=== PATIENT | male | born 1995 ===

== ENCOUNTER → 2017-07-16 | Outpatient (CLI) | payer OTHER ==
[2017-07-16 11:21] LABS: Basophils # (auto) 0 uL; Basophils % (auto) 0.7 % (0.0-2.0); Eosinophils # (auto) 0.1 uL; Eosinophils % (auto) 1.1 % (0.0-7.0); Hematocrit 50.1 % (41.0-53.0); Hemoglobin 17.1 g/dL (13.5-17.5); Lymphocytes % (auto) 18.8 % (10.0-50.0); Mean Corpuscular Hemoglobin 28.9 pg (28.0-32.0); Mean Corpuscular Hgb Conc. 34.1 g/dL (32.0-36.0); Mean Corpuscular Volume 84.7 fL (80.0-100.0); Monocytes # (auto) 0.5 uL; Neutrophils # (auto) 3.8 uL; Neutrophils % (auto) 70.4 % (37.0-80.0); Platelet Count (auto) 226 10^3/uL (140-450); Red Blood Cells 5.92 10^6/uL (4.5-5.90); Red Cell Distribution Width 13.1 % (11.8-14.3); White Blood Cell 5.4 10^3/uL (4.4-10.8)
[2017-07-16 11:31] LABS: Urine Bacteria NONE SEEN /hpf (None Seen); Urine Blood Negative /uL (Negative); Urine Specific Gravity 1.021 (1.001-1.035); Urine WBC <1 /hpf (0 - 3)
[2017-07-16 12:33] LABS: Folate (Folic Acid) 16.48 ng/mL (5.38-24)
[2017-07-16 12:59] LABS: Albumin 4.3 g/dL (3.4-5.0); BUN/Creatinine Ratio 11.7; Bilirubin, Total 0.8 mg/dL (0.2-1.0); Potassium 4.1 mmol/L (3.5-5.1); Total Protein 8.1 g/dL (6.4-8.2)
== END | disposition home or self-care (01) ==
LOC: LAB 10:35
PROVIDERS: ATTEND Nurse Practitioner
DX: F41.9 Anxiety disorder, unspecified (principal); R05 Cough
CPT/HCPCS: 36415; 80053; 80061; 81001; 82306; 82607; 82746; 84443; 85025

== ENCOUNTER → 2017-11-09 | Outpatient (CLI) | payer OTHER ==
[2017-11-09 10:09] LABS: Basophils # (auto) 0 uL; Basophils % (auto) 0.7 % (0.0-2.0); Eosinophils # (auto) 0.1 uL; Eosinophils % (auto) 1.1 % (0.0-7.0); Hematocrit 48.7 % (41.0-53.0); Hemoglobin 16.4 g/dL (13.5-17.5); Lymphocytes # (auto) 1.1 uL; Lymphocytes % (auto) 19.3 % (10.0-50.0); Mean Corpuscular Hemoglobin 28.7 pg (28.0-32.0); Mean Corpuscular Hgb Conc. 33.8 g/dL (32.0-36.0); Mean Corpuscular Volume 84.9 fL (80.0-100.0); Monocytes # (auto) 0.5 uL; Monocytes % (auto) 8.2 % (0.0-12.0); Neutrophils # (auto) 4.1 uL; Neutrophils % (auto) 70.7 % (37.0-80.0); Nucleated Red Blood Cells % 0.2 %; Platelet Count (auto) 199 10^3/uL (140-450); Red Blood Cells 5.74 10^6/uL (4.5-5.90); Red Cell Distribution Width 13.1 % (11.8-14.3); White Blood Cell 5.8 10^3/uL (4.4-10.8)
[2017-11-09 10:15] LABS: Urine Bacteria NONE SEEN /hpf (None Seen); Urine Blood Negative /uL (Negative); Urine Specific Gravity 1.021 (1.001-1.035); Urine WBC <1 /hpf (0 - 3)
[2017-11-09 10:34] LABS: Albumin 4.4 g/dL (3.4-5.0); BUN/Creatinine Ratio 7.6; Bilirubin, Total 0.5 mg/dL (0.2-1.0); CRP High Sensitivity 1.44 mg/dL (< 0.3); Calcium 9.1 mg/dL (8.5-10.1); Potassium 4.2 mmol/L (3.5-5.1)
[2017-11-12 11:05] LABS: Hepatitis B Surface Antibody Negative
[2017-11-12 11:40] LABS: Hepatitis A Total Antibody Positive
[2017-11-12 13:14] LABS: Hepatitis B Core Total AB Negative; Hepatitis B Surface Antigen Negative (Negative); Hepatitis C Antibody Negative (Negative)
== END | disposition home or self-care (01) ==
LOC: LAB 09:38
PROVIDERS: ATTEND Nurse Practitioner
DX: R10.9 Unspecified abdominal pain (principal)
CPT/HCPCS: 36415; 80053; 81001; 85025; 85652; 86141; 86704; 86706; 86708; 86803; 87340

== ENCOUNTER → 2018-08-19 | Outpatient (CLI) | payer OTHER ==
[2018-08-19 14:50] LABS: Urine Bacteria NONE SEEN /hpf (None Seen); Urine Blood Negative /uL (Negative); Urine Specific Gravity 1.004 (1.001-1.035); Urine WBC <1 /hpf (0 - 3)
[2018-08-19 15:14] LABS: Albumin 4.2 g/dL (3.4-5.0); BUN/Creatinine Ratio 7.3; Calcium 9.3 mg/dL (8.5-10.1); Potassium 4.2 mmol/L (3.5-5.1)
[2018-08-19 15:18] LABS: Bilirubin, Total 0.7 mg/dL (0.2-1.0); Total Protein 7.7 g/dL (6.4-8.2)
== END | disposition home or self-care (01) ==
LOC: LAB 14:26
PROVIDERS: ATTEND Nurse Practitioner
DX: E78.5 Hyperlipidemia, unspecified (principal)
CPT/HCPCS: 36415; 80053; 80061; 81001; 82306; 84443

== ENCOUNTER 2018-08-29 08:27 | Emergency (ER) | payer OTHER ==
[~2018-08-29] VITALS: Ht 180.3 cm; Wt 72.6 kg
[2018-08-29 09:58] LABS: Basophils # (auto) 0.1 uL; Basophils % (auto) 1.2 % (0.0-2.0); Eosinophils # (auto) 0.1 uL; Hematocrit 47.4 % (41.0-53.0); Lymphocytes # (auto) 1.1 uL; Lymphocytes % (auto) 22.1 % (10.0-50.0); Mean Corpuscular Hemoglobin 29.5 pg (28.0-32.0); Mean Corpuscular Hgb Conc. 33.7 g/dL (32.0-36.0); Mean Corpuscular Volume 87.3 fL (80.0-100.0); Monocytes # (auto) 0.6 uL; Monocytes % (auto) 11.8 % (0.0-12.0); Neutrophils # (auto) 3.2 uL; Neutrophils % (auto) 62.9 % (37.0-80.0); Nucleated Red Blood Cells % 0.2 %; Platelet Count (auto) 197 10^3/uL (140-450); Red Blood Cells 5.43 10^6/uL (4.5-5.90); Red Cell Distribution Width 13.3 % (11.8-14.3)
[2018-08-29 10:11] LABS: Albumin 4.1 g/dL (3.4-5.0); Anion Gap 2 (5-15); Blood Urea Nitrogen 9 mg/dL (7-18); Calcium 8.8 mg/dL (8.5-10.1); Carbon Dioxide 29 mmol/L (21-32); Chloride 108 mmol/L (98-107); Glucose 91 mg/dL (74-106); Magnesium 2.5 mg/dL (1.6-2.6); Potassium 4.1 mmol/L (3.5-5.1); Sodium 139 mmol/L (136-145)
[2018-08-29 10:18] LABS: Alanine Aminotransferase 23 U/L (16-61); Alkaline Phosphatase 47 U/L (45-117); Aspartate Aminotransferase 30 U/L (15-37); BUN/Creatinine Ratio 10.2; Bilirubin, Total 0.7 mg/dL (0.2-1.0); GFR African American 138 mL/min; GFR Non-African American 114 mL/min; Total Protein 7.5 g/dL (6.4-8.2)
[2018-08-29 10:45] LABS: Alcohol, Urine < 3.0 mg/dL (0-5); Amphetamine Screen, Urine NEGATIVE (NEGATIVE); Barbiturate Scree,Urine NEGATIVE (NEGATIVE); Benzodiazephine Screen, Urine NEGATIVE (NEGATIVE); Cannabinoid Screen, Urine NEGATIVE (NEGATIVE); Cocaine Screen, Urine NEGATIVE (NEGATIVE); Opiate Scree,Urine NEGATIVE (NEGATIVE); Phencyclidine Screen, Urine NEGATIVE (NEGATIVE)
[2018-08-29 12:04] VITALS: BP 114/65
== END 2018-08-29 12:07 | disposition home or self-care (01) ==
LOC: ER 08:27
DX: F41.9 Anxiety disorder, unspecified (principal)
CPT/HCPCS: 36415; 71046; 80053; 80307; 83735; 84484; 85025; 93005

== ENCOUNTER → 2019-07-07 | Day surgery (SDC) | payer OTHER ==
[2019-07-03 10:37] LABS: Basophils # (auto) 0.1 uL; Basophils % (auto) 3.1 % (0.0-2.0); Eosinophils # (auto) 0.2 uL; Eosinophils % (auto) 3.9 % (0.0-7.0); Hematocrit 49.1 % (41.0-53.0); Hemoglobin 16.6 g/dL (13.5-17.5); Lymphocytes # (auto) 1.1 uL; Lymphocytes % (auto) 25.6 % (10.0-50.0); Mean Corpuscular Hemoglobin 29.4 pg (28.0-32.0); Mean Corpuscular Hgb Conc. 33.9 g/dL (32.0-36.0); Mean Corpuscular Volume 86.7 fL (80.0-100.0); Monocytes # (auto) 0.4 uL; Monocytes % (auto) 9.6 % (0.0-12.0); Neutrophils # (auto) 2.5 uL; Neutrophils % (auto) 57.8 % (37.0-80.0); Nucleated Red Blood Cells % 0.1 %; Platelet Count (auto) 197 10^3/uL (140-450); Red Blood Cells 5.66 10^6/uL (4.5-5.90); White Blood Cell 4.3 10^3/uL (4.4-10.8)
[2019-07-03 10:47] LABS: INR 1.07 (0.9-1.15); Partial Thromboplastin Time 28.9 sec (23.64-32.05)
[~2019-07-07] VITALS: Ht 180.3 cm; Wt 77.1 kg
[~2019-07-07] MED LIST: LIDOCAINE VISCOUS 2% 15ML UD ONE; SODIUM CHLORIDE LOCK 10 ML ONE; diphenhdrAMINE HCL 50 MG/1 ML VL ONE
[2019-07-07] MEDS: MIDAZOLAM HCL 5 MG/ML-1ML VIAL ONE ×2 (11:36→11:39)
[2019-07-07] MEDS: fentaNYL CITRATE 100 MCG/2 ML VL ONE ×2 (11:36→11:39)
[2019-07-07 12:12] VITALS: BP 110/72
== END | disposition home or self-care (01) ==
LOC: GI 10:01
PROVIDERS: ATTEND Internal Medicine Gastroenterology
DX: K29.50 Unspecified chronic gastritis without bleeding (principal); K22.8 Other specified diseases of esophagus; F41.9 Anxiety disorder, unspecified; F17.210 Nicotine dependence, cigarettes, uncomplicated; Z98.890 Other specified postprocedural states; Z79.899 Other long term (current) drug therapy
CPT/HCPCS: 36415; 43239; 43450; 85025; 85610; 85730; 88305; 88342; J1200; J2250; J3010; J7030